=== PATIENT | male | born 1950 | race African-American/Black ===

== ENCOUNTER 2017-10-20 13:45 | Inpatient (IN) ==
[2017-10-20 14:28] LABS: Basophils % 0.4 % (0.0-0.8); Eosinophils # 0.3 10*3/uL (0.0-0.87); Hematocrit 36.6 VOL% (42.0-52.0); Hemoglobin 11.7 GM/DL (14.0-18.0); Immature Granulocytes % 0.8 %; Immature Granulocytes Absolute 0.06 #; Lymphocytes # 2.2 10*3/uL (1.4-4.0); Lymphocytes % 30.3 % (21.2-54.2); Mean Corpuscular Hemoglobin 29 PG (27-34); Mean Corpuscular Volume 91.5 FL (87-102); Mean Platelet Volume 11.5 FL (9.6-12.0); Monocytes # 0.8 10*3/uL (0.11-0.8); Monocytes % 10.4 % (1.7-12.7); Neutrophils # 3.9 10*3/uL (1.4-7.4); Neutrophils % 54.1 % (38.7-73.9); Platelet Count 227 T/CUMM (130-400); Red Cell Distribution Width 13.9 % (9.3-17.3); White Blood Count 7.3 T/CUMM (4-12)
[2017-10-20 14:34] LABS: PT Patient Result 10.8 SECS; Partial Thromboplastin Time 24.7 SECS (0-40)
[2017-10-20 14:42] LABS: Alanine Aminotransferase 19 U/L (16-61); Albumin 3.9 G/DL (3.4-5.0); Alkaline Phosphatase 121 U/L (45-117); Aspartate Amino Transferase 16 U/L (0-37); Bilirubin,Total < 0.39 MG/DL (0.2-1.0); Blood Urea Nitrogen 22 MG/DL (7-18); Calcium 8.8 MG/DL (8.5-10.1); Glucose 114 MG/DL (74-106); Osmolality,Calculated 276.8 MOS/KG (273-304); Sodium 137 MMOL/L (136-145); Total Protein 7.2 G/DL (6.4-8.3)
[2017-10-20] MEDS ORDERED: PANTOPRAZOLE 40 MG VIAL IV ONE (17:49)
[2017-10-20] MEDS: SODIUM CHLORIDE 0.9% 1,000 ML IV SCH (18:12)
[2017-10-20] MEDS ORDERED: PANTOPRAZOLE 40 MG VIAL IV STA (18:12)
[2017-10-20 19:37] LABS: Hematocrit 38.2 VOL% (42.0-52.0); Hemoglobin 12.2 GM/DL (14.0-18.0)
[2017-10-20 19:47] LABS: PT Patient Result 10.7 SECS
[2017-10-20] MEDS: PANTOPRAZOLE 40 MG VIAL IV SCH (21:06)
[2017-10-20] MEDS ORDERED: INFLUENZA VIRUS VACCINE 0.5 ML SYRINGE IM ONE (22:20)
[2017-10-20] MEDS ORDERED: PNEUMOCOCCAL VACCINE (13 VALENT) 0.5 ML SYRINGE IM ONE (22:33)
[2017-10-21] MEDS: SODIUM CHLORIDE 0.9% 1,000 ML IV SCH ×3 (04:15→18:39)
[2017-10-21 06:53] LABS: Basophils % 0.3 % (0.0-0.8); Eosinophils # 0.3 10*3/uL (0.0-0.87); Eosinophils % 3.7 % (0.00-10.9); Hematocrit 35.2 VOL% (42.0-52.0); Hemoglobin 11.1 GM/DL (14.0-18.0); Immature Granulocytes % 0.7 %; Immature Granulocytes Absolute 0.05 #; Lymphocytes # 2.3 10*3/uL (1.4-4.0); Lymphocytes % 33.5 % (21.2-54.2); Mean Corpuscular HGB Conc 31.5 GM/DL (32-36); Mean Corpuscular Hemoglobin 29 PG (27-34); Mean Corpuscular Volume 92.9 FL (87-102); Monocytes # 0.8 10*3/uL (0.11-0.8); Monocytes % 11.8 % (1.7-12.7); Neutrophils # 3.5 10*3/uL (1.4-7.4); Platelet Count 210 T/CUMM (130-400); Red Blood Count 3.79 MC/CUMM (3.8-5.5)
[2017-10-21] MEDS: PANTOPRAZOLE 40 MG VIAL IV SCH ×2 (09:30→20:38)
[2017-10-21 09:50] LABS: Hemoglobin 11.2 GM/DL (14.0-18.0)
[2017-10-22] MEDS: SODIUM CHLORIDE 0.9% 1,000 ML IV SCH ×2 (01:26→09:24)
[2017-10-22] MEDS: PANTOPRAZOLE 40 MG VIAL IV SCH (09:22)
[2017-10-22 10:10] VITALS: BP 161/81
== END 2017-10-22 12:13 | DRG 379 ==
LOC: N.ED 13:45 → N.EDINP 17:25 → SUATTDRO 17:25 → N.5E 19:01
PROVIDERS: ADMIT Internal Medicine; ATTEND Family Medicine